=== PATIENT | male | born 1970 | race Caucasian/White ===

== ENCOUNTER → 2023-05-23 | Outpatient (CLI) | payer BC ==
[2023-05-23 16:04] LABS: HCT 43.9 % (39.6-50.0); HGB 14.4 d/dL (12.0-15.0); MCH 32.1 pg (27.0-32.0); MCHC 32.8 d/dL (32.0-37.0); MCV 97.8 FL (80.0-97.0); Mean Platelet Volume 11.3 FL (9.5-12.2); NRBC Per 100 WBC 0 X 10*3/uL (0.00-0.01); Platelet Count 221 X 10*3/uL (140-440); RBC 4.49 X 10*6/uL (4.40-5.60)
[2023-05-23 16:28] LABS: ALT 20 U/L (10-49); AST 42 U/L (14-35); BUN/Creat Ratio 14.62 Ratio (12.00-20.00); Carbon Dioxide 27.6 mmol/L (21.6-31.8); Chloride 106 mmol/L (96-109); Chol/HDL Ratio 4.21 Ratio; Glucose 118 mg/dL (70-110); Potassium 5.1 mmol/L (3.5-5.5); Sodium 142 mmol/L (135-145); VLDL Calculation 17.66 mg/dL (5.00-40.00)
== END | disposition home or self-care (01) ==
LOC: LABWHC1 09:16
PROVIDERS: ATTEND Internal Medicine Cardiovascular Disease
DX: I10 Essential (primary) hypertension (principal); E78.2 Mixed hyperlipidemia
CPT/HCPCS: 36415; 80048; 80061; 84443; 84450; 84460; 85027

== ENCOUNTER → 2024-02-15 | Outpatient (CLI) | payer BC ==
[2024-02-15 13:51] LABS: ALT 12 U/L (10-49); AST 30 U/L (14-35); Chol/HDL Ratio 3.35 Ratio; LDL Cholesterol,Calculated 163.3 mg/dL (0.0-131.0); VLDL Calculation 13.36 mg/dL (5.00-40.00)
== END | disposition home or self-care (01) ==
LOC: LABWHC1 09:00
PROVIDERS: ATTEND Internal Medicine Cardiovascular Disease
DX: E78.2 Mixed hyperlipidemia (principal)
CPT/HCPCS: 36415; 80061; 84450; 84460

== ENCOUNTER → 2024-06-30 | Outpatient (CLI) | payer BC | END | disposition home or self-care (01) | LOC: LABWHC1 07:00 | PROVIDERS: ATTEND Nurse Practitioner Family | DX: R53.83 Other fatigue | CPT/HCPCS: 36415; 84402; 84403 ==

== ENCOUNTER → 2024-08-15 | Outpatient (CLI) | payer BC ==
[2024-08-15 14:54] LABS: ALT 22 U/L (10-49); AST 36 U/L (14-35); LDL Cholesterol,Calculated 129.1 mg/dL (0.0-131.0)
== END | disposition home or self-care (01) ==
LOC: LABWHC1 08:10
PROVIDERS: ATTEND Internal Medicine Cardiovascular Disease
DX: E78.2 Mixed hyperlipidemia (principal)
CPT/HCPCS: 36415; 80061; 84450; 84460

== ENCOUNTER → 2025-05-29 | Outpatient (CLI) | payer BC ==
--- NOTE | 2025-05-30 12:51 | MR ---
MR shoulder LT wo con DATE OF EXAM: 05/29/2025 3:43 PM COMPARISON: Left shoulder radiographs 718 . CLINICAL INDICATION: Male, 54 years old with history of M25.562 LF SHOULDER PAIN; PHH, Lt shoulder pa in, hx of surgery TECHNIQUE: Noncontrast multiplanar, multiecho imaging of the left shoulder was performed, including T 1-weighted and fluid sensitive sequences. FINDINGS: Rotator cuff: Supraspinatus and infraspinatus: Status post rotator cuff repair with anchor-associated susceptibilit y in the humeral head. Small high-grade near full-thickness tear of the articular supraspinatus measu ring approximately 6 mm AP involving the mid fibers (anterior-posterior junction) of the critical zon e. The majority of the posterior fibers appear intact as do a few anterior fibers. Partial-thickness partial width articular surface tear of infraspinatus with delaminating component extending proximall y toward the myotendinous junction. Background tendinosis. Subscapularis: Small low-grade partial articular surface tear of the superior fibers. Marked backgrou nd tendinosis. Teres minor: Intact. Cuff muscles: Marked fatty infiltration without significant atrophy of the teres minor. Mild to moder ate uniform fatty infiltration of supraspinatus, infraspinatus, and subscapularis without evidence at rophy. Acromioclavicular joint: Postsurgical changes and widening of the joint. Scattered foci of susceptibi lity compatible with history/surgical changes. SA-SD bursa: No bursal fluid. Long head biceps tendon: Intact. Medially subluxed out of the bicipital groove and overriding the sub scapularis tendon suggestive of tear/insufficiency of the transverse ligament. Tendinosis of the intr a-articular portion. Mildly complex extra-articular biceps tenosynovitis; synechiae suggesting adhesi ons. Rotator Interval: Fact completely effaced, presumably postoperative scarring. Moderate edema, nonspec ific. Axillary pouch: Mildly distended with debris-filled fluid suggesting tenosynovitis. Humeral attachmen ts appear intact/non-thickened. No extra-articular/adjacent edema. Labrum: Displaced posterior superior and posterior labral tear with additional marked degeneration/fr aying. Paralabral cyst is seen inferior and posteriorly. Cartilage: Marked thinning of the posterior glenoid with additional near full-thickness fissures. Sev ere thinning of the superior humeral head cartilage. Marrow: Edema-like marrow signal of the humeral head immediately adjacent the rotator cuff anchors co uld reflect reactive versus early cystic change. No fracture or marrow replacing process. Other soft tissues: No joint effusion. No axillary adenopathy. IMPRESSION: 1. Status post rotator cuff repair. Abnormalities of supraspinatus, infraspinatus, and subscapularis as described. Unclear if these represent postsurgical changes or residual versus recurrent tears. Re commend correlation with any prior postsurgical MR. 2. Biceps instability and tenosynovitis. 3. Moderate glenohumeral arthrosis and suspected synovitis. Additional concomitant degeneration and tearing of the labrum. 4. Postsurgical changes of the acromioclavicular joint. [facility], , 05/30/2025 12:48 PM
== END | disposition home or self-care (01) ==
LOC: RADMRIMAIN 14:56
PROVIDERS: ATTEND Orthopaedic Surgery
DX: M65.912 Unspecified synovitis and tenosynovitis, left shoulder (principal); M19.012 Primary osteoarthritis, left shoulder; Z98.890 Other specified postprocedural states